=== PATIENT | male | born 1980 | race African-American/Black ===

== ENCOUNTER 2022-11-27 23:42 | Emergency (ER) | payer OTHER, MEDICAID ==
[~2022-11-27] VITALS: Ht 182.9 cm; Wt 86.0 kg
[~2022-11-27 23:42] MED LIST: UNKNOWN MEDICATION
[2022-11-28 00:19] VITALS: BP 133/92
== END 2022-11-28 06:15 | disposition home or self-care (01) ==
LOC: ER 23:42
DX: H53.2 Diplopia (principal)
CPT/HCPCS: 99281